=== PATIENT | female | born 1990 | race African-American/Black ===

== ENCOUNTER 2017-02-25 09:49 | Emergency (ER) | payer MEDICAID ==
[~2017-02-25] VITALS: Ht 167.6 cm; Wt 68.0 kg
[2017-02-25] MEDS ORDERED: LAMO25TA4 PO (09:56)
[2017-02-25] MEDS ORDERED: SERT25TA74 PO (09:56)
[2017-02-25 13:10] VITALS: BP 116/63
== END 2017-02-25 13:18 | disposition home or self-care (01) ==
LOC: ER 09:49
DX: R44.0 Auditory hallucinations (principal); F32.9 Major depressive disorder, single episode, unspecified; F43.9 Reaction to severe stress, unspecified; F41.9 Anxiety disorder, unspecified
CPT/HCPCS: 81025; 99284